=== PATIENT | female | born 1965 | race Caucasian/White ===

== ENCOUNTER 2020-11-24 15:17 | Outpatient (REF) | payer OTHER, SELFPAY | END 2020-11-24 15:18 | disposition home or self-care (01) | LOC: HO.LAB 15:17 | PROVIDERS: Visit Provider Internal Medicine | DX: Z20.822 Contact with and (suspected) exposure to COVID-19 (principal) | CPT/HCPCS: 36415; C9803; U0003 ==

== ENCOUNTER 2021-03-21 09:19 | Outpatient (REF) | payer OTHER, SELFPAY ==
[2021-03-21 09:39] LABS: COVID-19 Test Negative (Negative)
== END 2021-03-21 09:20 | disposition home or self-care (01) ==
LOC: HO.LAB 09:19
PROVIDERS: Visit Provider Internal Medicine
DX: Z20.822 Contact with and (suspected) exposure to COVID-19 (principal)
CPT/HCPCS: 36415; 87635; C9803